=== PATIENT | male | born 1975 | race African-American/Black ===

== ENCOUNTER 2016-11-12 08:55 | Emergency (ER) | payer SELFPAY ==
[2016-11-12] MEDS ORDERED: DEXAMETHASONE 10 MG/ML VIAL PO STA (09:26)
[2016-11-12] MEDS ORDERED: DEXAMETHASONE 10 MG/ML VIAL ONE (09:52)
[2016-11-12] MEDS ORDERED: CHERRY SYRUP 10 ML UDC PO ONE (09:52)
== END 2016-11-12 10:20 | disposition home or self-care (01) ==
DX: S60.032A Contusion of left middle finger without damage to nail, initial encounter (principal); W20.8XXA Other cause of strike by thrown, projected or falling object, initial encounter; Y93.E6 Activity, residential relocation; F17.200 Nicotine dependence, unspecified, uncomplicated; J06.9 Acute upper respiratory infection, unspecified; J32.9 Chronic sinusitis, unspecified
CPT/HCPCS: 73140; 87275; 87276; 99283; 99284; A9270

== ENCOUNTER 2017-03-03 14:11 | Emergency (ER) | payer SELFPAY ==
[2017-03-03] MEDS ORDERED: IBUPROFEN 600 MG TABLET PO ONE (15:19)
[2017-03-03] MEDS ORDERED: HYDROcod/ACETAM 5/325 MG TABLET ONE (15:19)
[2017-03-03] MEDS: IBUPROFEN 600 MG TABLET PO STA (15:44)
[2017-03-03] MEDS: HYDROcod/ACETAM 5/325 MG TABLET PO STA (15:44)
[2017-03-03 15:48] VITALS: BP 116/70
--- NOTE | 2017-03-03 16:02 | XRAY Preliminary Report ---
Exam: XR Knee 3 View BILAT IMPRESSION: Negative bilateral knee radiography. [facility] SITE ID: [id number]
--- NOTE | 2017-03-03 16:03 | XRAY Report ---
EXAMS: 1. Right Knee Radiography 2. Left Knee Radiography EXAM DATE:03/03/2017 03:43 PM. CLINICAL HISTORY:Knee pain and swelling. COMPARISON: None. TECHNIQUE: 3 views each. FINDINGS: Right Knee: Bones: Normal. No fractures or bone lesions. Joints: Normal. No effusion. No subluxations. Soft Tissues: Normal. No soft tissue swelling. Left Knee: Bones: Normal. No fractures or bone lesions. Joints: Normal. No effusion. No subluxations. Soft Tissues: Normal. No soft tissue swelling. IMPRESSION: Negative bilateral knee radiography. [facility] Referring Provider Line: [phone] SITE ID: [id number]
[2017-03-03 16:23] LABS: BASOPHILS # (AUTO) 0.1 10^3/uL (0.0-0.1); BASOPHILS % (AUTO) 1.1 %; EOSINOPHILS # (AUTO) 0.1 10^3/uL (0.0-0.7); EOSINOPHILS % (AUTO) 1.8 %; HCT - HEMATOCRIT 40.2 % (42.0-52.0); HGB - HEMOGLOBIN 12.9 g/dL (14.0-18.0); LYMPHOCYTES # (AUTO) 2.4 10^3/uL (1.5-3.5); LYMPHOCYTES % (AUTO) 50.9 %; MEAN CORPUSCULAR VOLUME 84.3 fL (80.0-94.0); MEAN PLATELET VOLUME 7.6 fL (7.4-11.4); MONOCYTES # (AUTO) 0.4 10^3/uL (0.0-1.0); MONOCYTES % (AUTO) 8.3 %; NEUTROPHILS # (AUTO) 1.8 10^3/uL (1.5-6.6); NEUTROPHILS % (AUTO) 37.9 %; NUCLEATED RED BLOOD CELLS AUTO 0.1 /100WBC; RED BLOOD COUNT 4.77 10^6/uL (4.70-6.10); RED CELL DISTRIBUTION WIDTH 13.1 % (12.0-15.0); UNCORRECTED WHITE BLOOD COUNT 4.8 x10^3/uL; WHITE BLOOD COUNT 4.8 x10^3/uL (4.8-10.8)
[2017-03-03 16:41] LABS: ALBUMIN/GLOBULIN RATIO 1.4 (1.0-2.2); BILIRUBIN,TOTAL 0.5 mg/dL (0.2-1.0); BUN - BLOOD UREA NITROGEN 11 mg/dL (6-20); CALCIUM 8.8 mg/dL (8.5-10.3); CARBON DIOXIDE - CO2 27 mmol/L (21-32); CHLORIDE 103 mmol/L (101-111); CREATININE 0.7 mg/dL (0.6-1.2); GFR - MDRD 151 (>89); GLUCOSE 98 mg/dL (70-100); LIPASE 26 U/L (22-51); POTASSIUM 3.6 mmol/L (3.5-5.0); SODIUM 137 mmol/L (135-145); TOTAL PROTEIN 7.1 g/dL (6.7-8.2)
--- NOTE | 2017-03-03 16:46 | ED Physician Documentation ---
PD HPI LOWER EXT INJURY - Stated complaint Stated Complaint: BI LAT KNEE PX - Chief complaint Chief Complaint: Ext Problem - History obtained from History obtained from: Patient - History of Present Illness PD HPI LOW EXT INJURY LOCATION: Right, Left, Knee Type of injury: Other (works on knees and squatting a lot at work). No: Fall, Twist Where injury occurred: Work Timing - onset: How many weeks ago (1-2) Timing - duration: Weeks (1-2) Timing - details: Gradual onset, Still present, Waxing and waning Improved by: Rest Worsened by: Moving, Palpating, Other (hurts more at end of work day after kneeling and squatting often.) Associated symptoms: Swelling (upper anterior knee, more on the right, worse at end fo workday.). No: Weakness, Numbness Contributing factors: Other (he recalls a metal beam/bar falling onto knee about 8 months ago but was only painful for few days then and no interval problems. So seems unrelated.). No: Prior ortho surgery Similar symptoms before: Has not had sx before Recently seen: Not recently seen Review of Systems Constitutional: denies: Fever, Chills Skin: denies: Rash, Lesions Musculoskeletal: reports: Joint pain, Other Neurologic: denies: Focal weakness, Numbness PD PAST MEDICAL HISTORY - Past Medical History Cardiovascular: None Respiratory: None Neuro: None Endocrine/Autoimmune: None Musculoskeletal: None - Past Surgical History Past Surgical History: No - Present Medications Home Medications: Ambulatory Orders Medication Instructions Recorded Confirmed Albuterol Sulfate [Proair Hfa 8.5 gm IH QID #1 hfa.aer.ad 11/12/16 Inhaler] Amoxicillin 500 mg PO TID #20 capsule 11/12/16 Dexamethasone [Decadron] 4 mg PO DAILY #5 tablet 11/12/16 Hydrocodone/Acetaminophen [[place] 1 each PO Q6H PRN #20 tablet 11/12/16 5-325 Tablet] Ondansetron Odt [Zofran] 4 mg TL Q6H PRN #15 tablet 11/12/16 Dexamethasone [Decadron] 4 mg PO DAILY #5 tablet 03/03/17 Hydrocodone/Acetaminophen [[place] 1 each PO Q6H PRN #20 tablet 03/03/17 5-325 Tablet] Naproxen [Naprosyn] 500 mg PO BID #20 tablet 03/03/17 - Allergies Allergies/Adverse Reactions: Allergies Allergy/AdvReac Type Severity Reaction Status Date / Time No Known Drug Allergies Allergy Verified 11/12/16 09:02 - Social History Does the pt smoke?: Yes Smoking Status: Current every day smoker Does the pt drink ETOH?: Yes Does the pt have substance abuse?: No - Immunizations Immunizations are current?: Yes PD ED PE NORMAL - Vitals Vital signs reviewed: Yes - General General: Alert and oriented X 3, No acute distress, Well developed/nourished - HEENT HEENT: Pharynx benign - Neck Neck: Supple, no meningeal sign, No adenopathy - Cardiac Cardiac: RRR, No murmur - Respiratory Respiratory: Clear bilaterally - Abdomen Abdomen: Soft, Non tender - Extremities Extremities: No edema, No calf tenderness / cord, Other (both knees, right more , with tenderness suprapatellar area without notable effusion. Mild crepitance in suprapatellar tendon c/w inflammation. Ligament testing is without noted laxity. Some pain on MCL stress.) Results - Vitals Vitals: Oxygen O2 Source Room air - Labs Labs: Laboratory Tests 03/03/17 03/03/17 03/03/17 16:14 16:14 16:14 WBC 4.8 RBC 4.77 Hgb 12.9 L Hct 40.2 L MCV 84.3 MCH 27.0 MCHC 32.0 RDW 13.1 Plt Count 301 MPV 7.6 Neut # 1.8 Lymph # 2.4 Mckean # 0.4 Eos # 0.1 Baso # 0.1 Absolute Nucleated RBC 0.00 Nucleated RBCs 0.1 ESR 10 Sodium 137 Potassium 3.6 Chloride 103 Carbon Dioxide 27 Anion Gap 7.0 BUN 11 Creatinine 0.7 Estimated GFR (MDRD) 151 Glucose 98 Calcium 8.8 Total Bilirubin 0.5 AST 21 ALT 26 Alkaline Phosphatase 66 C-Reactive Protein < 1.0 Total Protein 7.1 Albumin 4.2 Globulin 2.9 Albumin/Globulin Ratio 1.4 Lipase 26 - Rads (name of study) knees Radiology: Prelim report reviewed (no acute process) PD MEDICAL DECISION MAKING - ED course Complexity details: considered differential (no markers to suggest immune related, and no history of gout. Seems like suprapatelar bursitis and some patellar tendonitis. ), d/w patient Departure - Departure Disposition: 01 Home, Self Care Clinical Impression: Bursitis, knee Qualifiers: Knee bursitis location: suprapatellar bursitis Laterality: bilateral Qualified Code(s): M70.51 - Other bursitis of knee, right knee Condition: Stable Record reviewed to determine appropriate education?: Yes Instructions: ED Bursitis Follow-Up: López Torres MD [Provider Admit Priv/Credential] - Prescriptions: Dexamethasone [Decadron] 4 mg PO DAILY #5 tablet Naproxen [Naprosyn] 500 mg PO BID #20 tablet Hydrocodone/Acetaminophen [[place] 5-325 Tablet] 1 each PO Q6H PRN #20 tablet PRN Reason: Pain Comments: Your xrays look okay, no obvious arthritis. The blood tests are also okay, so no diabetes, kidney problems, and not suggestive of immune disorder nor infection. I presume the problem you are having is some inflammation of the tendons and bursa around the knee (bursitis). Naproxen twice daily. Add Tylenol or hydrocodone as needed for pain. Also to use Decadron steroid daily for 5 days to help as well. Follow up with Ortho if not better over a week or so. Less squatting and kneeling at work for a week. Forms: Activity restrictions Discharge Date/Time: 03/03/17 16:58
== END 2017-03-03 16:58 | disposition home or self-care (01) ==
LOC: ED 14:11
DX: M70.42 Prepatellar bursitis, left knee (principal); M70.41 Prepatellar bursitis, right knee; F17.200 Nicotine dependence, unspecified, uncomplicated
CPT/HCPCS: 36415; 80053; 83690; 85025; 85651; 86140; 99283

== ENCOUNTER 2019-07-07 12:40 | Emergency (ER) | payer OTHER ==
--- NOTE | 2019-07-07 13:22 | ED Physician Documentation ---
PD HPI PED ILLNESS - Stated complaint Stated Complaint: CONGESTION/SORE THROAT - Chief complaint Chief Complaint: Heent - History obtained from History obtained from: Patient - History of Present Illness Timing - onset: Yesterday (Previously healthy 43-year-old gentleman became sick since yesterday with a lot of nasal congestion, sore throat and drainage and a productive cough with yellow sputum and shortness of breath as well as low-grade fevers.) Review of Systems Constitutional: reports: Fever, Myalgias, Fatigue Ears: denies: Ear pain Nose: reports: Rhinorrhea / runny nose, Congestion Throat: reports: Sore throat Respiratory: reports: Dyspnea, Cough GI: denies: Abdominal Pain PD PAST MEDICAL HISTORY - Past Medical History Cardiovascular: None Respiratory: None Endocrine/Autoimmune: None Musculoskeletal: None - Past Surgical History Past Surgical History: No - Present Medications Home Medications: Ambulatory Orders Medication Instructions Recorded Confirmed Albuterol Sulfate [Proair Hfa 8.5 gm IH QID #1 hfa.aer.ad 11/12/16 Inhaler] Amoxicillin 500 mg PO TID #20 capsule 11/12/16 Hydrocodone/Acetaminophen [[place] 1 each PO Q6H PRN #20 tablet 11/12/16 5-325 Tablet] Ondansetron Odt [Zofran] 4 mg TL Q6H PRN #15 tablet 11/12/16 dexAMETHasone [Decadron] 4 mg PO DAILY #5 tablet 11/12/16 Hydrocodone/Acetaminophen [[place] 1 each PO Q6H PRN #20 tablet 03/03/17 5-325 Tablet] Naproxen [Naprosyn] 500 mg PO BID #20 tablet 03/03/17 dexAMETHasone [Decadron] 4 mg PO DAILY #5 tablet 03/03/17 Guaifenesin/Pseudoephedrne HCl 1 each PO BID PRN #20 tab.er.12h 07/07/19 [Mucinex D ER 600-60 mg Tablet] Ibuprofen [Motrin] 800 mg PO Q8H PRN #30 tablet 07/07/19 guaiFENesin/CODEINE [Robitussin AC] 5 - 10 ml PO Q6H PRN #120 ml 07/07/19 - Allergies Allergies/Adverse Reactions: Allergies Allergy/AdvReac Type Severity Reaction Status Date / Time No Known Drug Allergies Allergy Verified 09/24/19 12:57 - Social History Does the pt smoke?: Yes Smoking Status: Current every day smoker Does the pt drink ETOH?: Yes Does the pt have substance abuse?: No - Immunizations Immunizations are current?: Yes PD ED PE NORMAL - Vitals Vital signs reviewed: Yes - General General: Alert and oriented X 3, No acute distress - HEENT HEENT: Ears normal, Pharynx benign - Neck Neck: Supple, no meningeal sign, No bony TTP - Cardiac Cardiac: RRR, No murmur - Respiratory Respiratory: No respiratory distress, Clear bilaterally - Abdomen Abdomen: Non tender - Neuro Neuro: Alert and oriented X 3, Normal speech Results - Vitals Vitals: Vital Signs - 24 hr 07/07/19 12:50 Temperature 37 C Heart Rate 85 Respiratory 18 Rate Blood Pressure 119/78 O2 Saturation 100 Oxygen O2 Source Room air - Labs Labs: Laboratory Tests 07/07/19 13:16 Group A Strep Rapid Negative - Rads (name of study) 2v chest Radiology: EMP read contemporaneously (normal) PD MEDICAL DECISION MAKING - ED course ED course: 43-year-old gentleman with URI/viral syndrome. Flu is unlikely given the constellation of symptoms but not impossible but he would not really fit the necessary inclusion group for antiviral treatments. Remainder of his work-up was negative. Departure - Departure Disposition: 01 Home, Self Care Clinical Impression: Viral respiratory illness Condition: Good Record reviewed to determine appropriate education?: Yes Instructions: ED Viral Syndrome Prescriptions: guaiFENesin/CODEINE [Robitussin AC] 5 - 10 ml PO Q6H PRN #120 ml PRN Reason: Cough Guaifenesin/Pseudoephedrne HCl [Mucinex D ER 600-60 mg Tablet] 1 each PO BID PRN #20 tab.er.12h PRN Reason: congestion Ibuprofen [Motrin] 800 mg PO Q8H PRN #30 tablet PRN Reason: PAIN &/OR FEVER Comments: Return if not better by the weekend, sooner for worsening symptoms. Follow-up with your doctor regardless. Forms: Activity restrictions
--- NOTE | 2019-07-07 13:50 | XRAY Report ---
Reason: cough Procedure Date: 07/07/2019 Accession Number: [id number] / [id number] Procedure: XR - Chest 2 View X-Ray CPT Code: 95157 FULL RESULT: EXAM: CHEST RADIOGRAPHY EXAM DATE: 07/07/2019 01:32 PM. CLINICAL HISTORY: Cough. COMPARISON: None. TECHNIQUE: 2 views. FINDINGS: Lungs/Pleura: No focal opacities evident. No pleural effusion. No pneumothorax. Normal volumes. Mediastinum: Heart and mediastinal contours are unremarkable. Other: None. IMPRESSION: Normal 2-view chest radiography. [facility]
[2019-07-07 14:01] VITALS: BP 131/89
== END 2019-07-07 14:01 | disposition home or self-care (01) ==
LOC: ED 12:40
DX: J06.9 Acute upper respiratory infection, unspecified (principal); B34.9 Viral infection, unspecified; F17.200 Nicotine dependence, unspecified, uncomplicated
CPT/HCPCS: 71046; 87070; 87430; 99283

== ENCOUNTER 2019-07-15 08:32 | Emergency (ER) | payer OTHER ==
[2019-07-15] MEDS ORDERED: CHERRY SYRUP 10 ML UDC PO ONE (08:51)
[2019-07-15] MEDS ORDERED: DEXAMETHASONE 10 MG/ML VIAL PO STA (08:51)
[2019-07-15] MEDS ORDERED: IPRATROPIUM/ALBUTEROL 3 ML NEB INH STA (08:52)
--- NOTE | 2019-07-15 08:58 | ED Physician Documentation ---
PD HPI URI - Stated complaint Stated Complaint: COLD SX/WEAKNESS - Chief complaint Chief Complaint: Resp - History obtained from History obtained from: Patient - History of Present Illness Timing - onset: How many days ago (10) Timing duration: Days (10) Timing details: Gradual onset, Still present Associated symptoms: Fever, Nasal congestion, Rhinorrhea, Sore throat, Productive cough, Dyspnea Improves by: Rest, Medication Worsened by: Activity Similar symptoms before: Diagnosis (URI) Recently seen: Emergency Dept - Additional information Additional information: 43 y/o male with a URI that is worsening with increased soa, development of yellow phlem and loss of energy. Review of Systems Constitutional: reports: Fever, Myalgias, Fatigue Eyes: denies: Decreased vision Ears: denies: Ear pain Nose: reports: Rhinorrhea / runny nose, Congestion Throat: reports: Sore throat Cardiac: denies: Chest pain / pressure, Palpitations Respiratory: reports: Dyspnea, Cough, Wheezing GI: denies: Nausea, Vomiting : denies: Dysuria PD PAST MEDICAL HISTORY - Past Medical History Cardiovascular: None Respiratory: None Neuro: None Endocrine/Autoimmune: None GI: None : None HEENT: None Psych: None Musculoskeletal: None Derm: None - Past Surgical History Past Surgical History: No - Present Medications Home Medications: Ambulatory Orders Medication Instructions Recorded Confirmed Albuterol Sulfate [Proair Hfa 8.5 gm IH QID #1 hfa.aer.ad 11/12/16 Inhaler] Amoxicillin 500 mg PO TID #20 capsule 11/12/16 Hydrocodone/Acetaminophen [[place] 1 each PO Q6H PRN #20 tablet 11/12/16 5-325 Tablet] Ondansetron Odt [Zofran] 4 mg TL Q6H PRN #15 tablet 11/12/16 dexAMETHasone [Decadron] 4 mg PO DAILY #5 tablet 11/12/16 Hydrocodone/Acetaminophen [[place] 1 each PO Q6H PRN #20 tablet 03/03/17 5-325 Tablet] Naproxen [Naprosyn] 500 mg PO BID #20 tablet 03/03/17 dexAMETHasone [Decadron] 4 mg PO DAILY #5 tablet 03/03/17 Guaifenesin/Pseudoephedrne HCl 1 each PO BID PRN #20 tab.er.12h 07/07/19 [Mucinex D ER 600-60 mg Tablet] Ibuprofen [Motrin] 800 mg PO Q8H PRN #30 tablet 07/07/19 guaiFENesin/CODEINE [Robitussin AC] 5 - 10 ml PO Q6H PRN #120 ml 07/07/19 Albuterol Sulf [Ventolin Hfa 1 - 2 puffs INH Q4HR PRN #1 inhaler 07/15/19 Inhaler] Azithromycin [Zithromax] 250 mg PO DAILY #6 tablet 07/15/19 predniSONE [Prednisone] 40 mg PO DAILY #10 tablet 07/15/19 - Allergies Allergies/Adverse Reactions: Allergies Allergy/AdvReac Type Severity Reaction Status Date / Time No Known Drug Allergies Allergy Verified 07/15/19 08:50 - Social History Does the pt smoke?: Yes Smoking Status: Current every day smoker Does the pt drink ETOH?: Yes Does the pt have substance abuse?: No - Immunizations Immunizations are current?: Yes - POLST Patient has POLST: No PD ED PE NORMAL - Vitals Vital signs reviewed: Yes (normal ) - General General: Alert and oriented X 3, No acute distress, Well developed/nourished - HEENT HEENT: Atraumatic, PERRL, EOMI, Ears normal, Moist mucous membranes, Other (mild swelling to the posterior pharynx ) - Neck Neck: Supple, no meningeal sign, No bony TTP - Cardiac Cardiac: RRR, No murmur - Respiratory Respiratory: No respiratory distress, Other (wheezes and rhonchi to both bases with diminished breath sounds. ) - Abdomen Abdomen: Soft, Non tender - Back Back: No CVA TTP, No spinal TTP - Derm Derm: Normal color, Warm and dry, No rash - Extremities Extremities: No deformity, No edema - Neuro Neuro: Alert and oriented X 3, oven tender 2-12 intact, No motor deficit, No sensory deficit, Normal speech Eye Opening: Spontaneous Motor: Obeys Commands Verbal: Oriented GCS Score: 15 - Psych Psych: Normal mood, Normal affect Results - Vitals Vitals: Vital Signs - 24 hr 07/15/19 07/15/19 08:49 09:04 Temperature 36.6 C Heart Rate 74 85 Respiratory 20 16 Rate Blood Pressure 111/79 O2 Saturation 20 L Oxygen O2 Source Room air - Rads (name of study) chest Radiology: Prelim report reviewed (Impression: No consolidations.), EMP read indepedently, See rad report PD MEDICAL DECISION MAKING - ED course Complexity details: reviewed results, re-evaluated patient, considered differential, d/w patient ED course: 43-year-old male with URI has increased wheezing and is now coughing up yellow and green phlegm.He is administered dexamethasone 10 mg orally given a DuoNeb treatment we will place him on to some azithromycin and albuterol as well as a course of prednisone. Departure - Departure Disposition: 01 Home, Self Care Clinical Impression: Asthmatic bronchitis Qualifiers: Asthma severity: mild Asthma persistence: intermittent Asthma complication type: with acute exacerbation Qualified Code(s): J45.21 - Mild intermittent asthma with (acute) exacerbation Condition: Stable Instructions: ED Bronchitis Asthmatic Follow-Up: [facility] [Provider Group] Prescriptions: Albuterol Sulf [Ventolin Hfa Inhaler] 1 - 2 puffs INH Q4HR PRN #1 inhaler PRN Reason: Shortness Of Air/Wheezing Azithromycin [Zithromax] 250 mg PO DAILY #6 tablet predniSONE [Prednisone] 40 mg PO DAILY #10 tablet Forms: Activity restrictions
--- NOTE | 2019-07-15 09:43 | XRAY Report ---
Reason: cough bilat rhonchi Procedure Date: 07/15/2019 Accession Number: [id number] / [id number] Procedure: XR - Chest 2 View X-Ray CPT Code: 98737 FULL RESULT: EXAM: CHEST RADIOGRAPHY EXAM DATE: 07/15/2019 09:33 AM. CLINICAL HISTORY: Cough, bilateral rhonchi. COMPARISON: CHEST 2 VIEW 07/07/2019 1:22 PM. TECHNIQUE: 2 views. FINDINGS: Lungs/Pleura: No focal opacities evident. No pleural effusion. No pneumothorax. Normal volumes. Mediastinum: Heart and mediastinal contours are unremarkable. Other: None. IMPRESSION: No acute consolidations. [facility]
[2019-07-15 09:57] VITALS: BP 116/77
== END 2019-07-15 09:57 | disposition home or self-care (01) ==
LOC: ED 08:32
DX: J45.21 Mild intermittent asthma with (acute) exacerbation (principal); F17.200 Nicotine dependence, unspecified, uncomplicated
CPT/HCPCS: 71046; 94640; 99283; 99284; A9270